=== PATIENT | male | born 2000 | race Caucasian/White ===

== ENCOUNTER 2021-03-29 03:05 | Emergency (ER) | payer OTHER ==
[~2021-03-29] VITALS: Ht 170.2 cm; Wt 122.5 kg
--- NOTE | 2021-03-29 03:05 | NUR ---
PATIENT PRESENTS TO ED WITH CHIP FOR PRE-BOOK EXAM . DENIES N/V/D; SKIN IS PINK/WARM/DRY; AAOX4 WITH EVEN AND STEADY GAIT; LUNGS CLEAR BL; HR EVEN AND REGULAR; PT DENIES ANY FEVER, CP, SOB, OR COUGH AT THIS TIME; ER MD MADE AWARE OF PT STATUS
[2021-03-29 03:13] VITALS: BP 133/84
--- NOTE | 2021-03-29 03:20 | NUR ---
Patient discharged with v/s stable ACCOMPANIED BY CHIP Written and verbal after care instructions given and explained. PT MEDICALLY CLEARED, OK TO BOOK Patient verbalized understanding. Ambulatory with steady gait. All questions addressed prior to discharge. Advised to follow up with PMD.
== END 2021-03-29 03:20 ==
LOC: MED 03:05
DX: Z02.89 Encounter for other administrative examinations (principal); V98.8XXA Other specified transport accidents, initial encounter; Y93.89 Activity, other specified; Y92.89 Other specified places as the place of occurrence of the external cause; Y99.8 Other external cause status
CPT/HCPCS: 99283